=== PATIENT | female | born 1980 | race African-American/Black ===

== ENCOUNTER 2024-02-12 03:59 | Emergency (ER) | payer MEDICAID, SELFPAY ==
[2024-02-12 04:06] VITALS: BP 148/86; PULSE 91; RESP 16; TEMP 36.3; O2SAT 100
--- NOTE | 2024-02-12 04:12 | PC.NURSE ---
Homeless and reports they are taking everything away from me, house/money . When asked pt who was doing this, she states she does not know. States she feels safe with her who is here with her.
[2024-02-12 04:44] LABS: Appearance Urine Clear (Clear); Bacteria Urine None Seen /hpf; Bilirubin Urine Negative (Negative); Blood Urine Negative (Negative); Color Urine Yellow (Yellow); Glucose Urine UA Negative (Negative); Ketones Urine Negative (Negative); Leukocyte Esterase Ur Trace LEU/UL (Negative); Nitrate Urine Negative (Negative); Non Pathogenic Casts 0-2; Protein Urine Negative (Negative); RBC Urine 0-2 /hpf (0-2); Specific Grav Ur 1.007 (1.001-1.035); Squamous Epithelial Cell Urine None Seen /hpf (Few); Urobilinogen Urine 0.2 mg/dL (<2.0); WBC Urine 0-5 /hpf (0-3); pH Urine 6.5 (5.0-9.0)
--- NOTE | 2024-02-12 04:51 | ED.GENADULT ---
HPI - General Adult General Chief complaint: Unspecified Stated complaint: sore throat, peeing on myself, stressed Time Seen by Provider: 02/12/24 04:46 History of Present Illness HPI narrative: patient for a 3-year-old female who presents emergency department with chief complaint of sore throat and dysuria. Patient reports that she was diagnosed with strep at [facility] in the last couple of days reports she has not started her antibiotics that she was prescribed the patient states that the last 2 days she has noticed that she started having some urinary frequency and is concerned that she may have a UTI. Related Data Allergies Allergy/AdvReac Type Severity Reaction Status Date / Time No Known Allergies Allergy Verified 02/12/24 04:54 Review of Systems Review of Systems: A 10 system review of systems was completed on the patient and is negative except for what is stated in the HPI. Nursing and ancillary documentation was reviewed. Exam Narrative: GENERAL: Well-appearing, well-nourished, and in no acute distress. HEAD: Normocephalic, atraumatic. EYES: PERRLA and EOMI. ENT: Nares clear, no rhinorrhea or epistaxis. Mucous membranes moist. NECK: Supple. CHEST: Clear to auscultation. No respiratory distress. HEART: Regular rate and rhythm. No murmur heard. Normal peripheral pulses. ABDOMEN: Soft, nontender, nondistended, normal active bowel sounds. EXTREMITIES: Normal range of motion. No edema. SKIN: Warm, dry, no rash. NEURO: No focal deficits. Alert and oriented x3. PSYCH: Normal mood and affect. Course Vital Signs Vital signs: Vital Signs Temperature 36.3 C L 02/12/24 04:06 Pulse Rate 91 02/12/24 04:06 Respiratory Rate 16 02/12/24 04:06 Blood Pressure 148/86 H 02/12/24 04:06 Pulse Oximetry 100 02/12/24 04:06 Oxygen Delivery Room Air 02/12/24 04:06 Temperature 36.3 C L 02/12/24 04:06 Pulse Rate 91 02/12/24 04:06 Respiratory Rate 16 02/12/24 04:06 Blood Pressure 148/86 H 02/12/24 04:06 Pulse Oximetry 100 02/12/24 04:06 Oxygen Delivery Room Air 02/12/24 04:06 Medical Decision Making MDM Narrative Medical decision making narrative: differential diagnosis includes UTI, strep pharyngitis, viral illness urinalysis showed trace leukocyte esterase strep was negative COVID flu and RSV were negative. The patient was started on a short course Macrobid Vital Signs Vital Signs: Vital Signs Temperature 36.3 C L 02/12/24 04:06 Pulse Rate 91 02/12/24 04:06 Respiratory Rate 16 02/12/24 04:06 Blood Pressure 148/86 H 02/12/24 04:06 Pulse Oximetry 100 02/12/24 04:06 Oxygen Delivery Room Air 02/12/24 04:06 Temperature 36.3 C L 02/12/24 04:06 Pulse Rate 91 02/12/24 04:06 Respiratory Rate 16 02/12/24 04:06 Blood Pressure 148/86 H 02/12/24 04:06 Pulse Oximetry 100 02/12/24 04:06 Oxygen Delivery Room Air 02/12/24 04:06 Lab Data Labs: Lab Results 02/12/24 02/12/24 Range/Units 04:19 05:08 Urine Color Yellow (Yellow) Urine Appearance Clear (Clear) Urine pH 6.5 (5.0-9.0) Ur Specific Swisher 1.007 (1.001-1.035) Urine Protein Negative (Negative) mg/dL Urine Glucose (UA) Negative (Negative) mg/dL Urine Ketones Negative (Negative) mg/dL Ur Blood (Man) Negative (Negative) Urine Nitrate Negative (Negative) Urine Bilirubin Negative (Negative) Urine Urobilinogen 0.2 (<2.0) mg/dL Leukocyte Esterase Rfl Trace H (Negative) ANTONIETTA/UL Urine RBC 0-2 (0-2) /hpf Urine WBC 0-5 (0-3) /hpf Ur Squamous Epith Cells None seen (Few) /hpf Urine Bacteria None seen /hpf Urine Casts 0-2 Influenza A (RT-PCR) Negative (Negative) Influenza B (RT-PCR) Negative (Negative) RSV (RT-PCR) Negative (Negative) SARS-CoV-2 RNA (RT-PCR) Negative (Negative) Group A Strep (PCR) Not detected (Negative) Discharge Plan Discharge Clinical Impression
[2024-02-12 04:52] LABS: Add Urine Microscopic? YES
[2024-02-12 05:02] LABS: Strep Group A RT-PCR NOT DETECTED (Negative)
[2024-02-12 05:55] LABS: Influenza A QL RT-PCR Negative (Negative); Influenza B QL RT-PCR Negative (Negative); RSV RNA, RT-PCR Negative (Negative); SARS-CoV-2 RNA PCR Negative (Negative)
--- NOTE | 2024-02-12 08:09 | PC.NURSE ---
Cab called for patient and family
== END 2024-02-12 06:03 | disposition home or self-care (01) ==
PROVIDERS: Emergency Provider Emergency Medicine
DX: R30.0 Dysuria (principal); Z20.822 Contact with and (suspected) exposure to COVID-19
CPT/HCPCS: 87637; 87651; 99283